=== PATIENT | female | born 1990 | race Caucasian/White ===

== ENCOUNTER 2017-05-11 17:36 | Emergency (ER) | payer OTHER ==
[~2017-05-11] VITALS: Ht 154.9 cm; Wt 49.8 kg
[~2017-05-11 17:36] MED LIST: Macrobid PO; Motrin PO; Procardia XL,Adalat PO; Tylenol Extra Streng PO; ZOFRAN4 MG PO
[2017-05-11 18:33] LABS: ADD MIUA? YES; BILIRUBIN NEGATIVE; BLOOD NEGATIVE; COLOR AMBER ((YELLOW)); GLUCOSE (STRIP) 50; KETONES 80; LEUKOCYTES MODERATE; NITRITE NEGATIVE; PROTEIN (STRIP) 100; SPECIFIC GRAVITY 1.034 (1.000-1.030)
[2017-05-11 18:33] LABS: HEMATOCRIT 41.3 % (36.0-46.0); MCH 30.8 PG (29.0-34.0); MCHC 35.8 G/DL (30.0-36.0); MCV 85.9 FL (83-99); PLATELET COUNT 247 K/uL (156-360); RBC DIS.WIDTH-CV 12.1 % (11.8-14.6); RED BLOOD COUNT 4.81 M/uL (3.80-5.20); WHITE BLOOD COUNT 8.1 K/uL (4.1-10.2)
[2017-05-11 18:57] LABS: CHLORIDE 100 mEq/L (99-109); POTASSIUM 3.4 mEq/L (3.7-5.4); SODIUM 138 mEq/L (136-147)
[2017-05-11 18:58] LABS: GLUCOSE 109 mg/dL (70-99)
[2017-05-11 19:00] LABS: ANION GAP 14 MEQ/L (2-14)
[2017-05-11 19:02] LABS: GFR ESTIMATE (CALCULATED) > 59 mL/min/
[2017-05-11 19:03] LABS: UREA NITROGEN (BUN) 12 mg/dL (9-23)
[2017-05-11 19:05] LABS: BACTERIA RARE /HPF; EPITHELIAL CELLS 3+ /HPF; MUCUS 4+ /LPF; RED BLOOD CELLS 0-5 /HPF (0-5); WHITE BLOOD CELLS 30-40 /HPF (0-5)
[2017-05-11 19:28] LABS: QUANTITATIVE HCG 118450.2 MIU/ML
[2017-05-11] MEDS ORDERED: ZOFRAN ODT4 MG PO (20:59)
[2017-05-11 21:21] VITALS: BP 139/87
== END 2017-05-11 21:22 | disposition home or self-care (01) ==
LOC: EME 17:36 → RME 17:36
PROVIDERS: Physician Assistant
DX: O20.0 Threatened abortion (principal); O21.9 Vomiting of pregnancy, unspecified; Z3A.01 Less than 8 weeks gestation of pregnancy
CPT/HCPCS: 76801; 80048; 81003; 84702; 85027; 99281; 99284; J7030

== ENCOUNTER 2017-05-13 11:30 | Emergency (ER) | payer OTHER ==
[~2017-05-13] VITALS: Ht 154.9 cm; Wt 50.9 kg
[~2017-05-13 11:30] MED LIST changes: +ZOFRAN ODT4 MG PO
[2017-05-13 12:34] LABS: ADD MIUA? YES; BILIRUBIN NEGATIVE; BLOOD NEGATIVE; COLOR YELLOW ((YELLOW)); GLUCOSE (STRIP) NEGATIVE; KETONES 80; LEUKOCYTES MODERATE; NITRITE NEGATIVE; PROTEIN (STRIP) 30; SPECIFIC GRAVITY 1.026 (1.000-1.030); UROBILINOGEN 0.2 MG/DL (0.2-1.0)
[2017-05-13 12:46] LABS: POTASSIUM 3.9 mEq/L (3.7-5.4); SODIUM 135 mEq/L (136-147)
[2017-05-13 12:48] LABS: GLUCOSE 85 mg/dL (70-99)
[2017-05-13 12:49] LABS: ANION GAP 12 MEQ/L (2-14)
[2017-05-13 12:51] LABS: BACTERIA RARE /HPF; EPITHELIAL CELLS 3+ /HPF; MUCUS TRACE /LPF; UCUL ADDED? YES; WHITE BLOOD CELLS 20-30 /HPF (0-5)
[2017-05-13 12:52] LABS: CHLORIDE 112 mEq/L (99-109); GFR ESTIMATE (CALCULATED) > 59 mL/min/
[2017-05-13 12:53] LABS: UREA NITROGEN (BUN) 4 mg/dL (9-23)
[2017-05-13 13:36] LABS: HEMATOCRIT 35.8 % (36.0-46.0); MCH 30.7 PG (29.0-34.0); MCHC 35.2 G/DL (30.0-36.0); MCV 87.3 FL (83-99); MEAN PLAT.VOLUME 9.9 uM^3 (9.5-12.4); PLATELET COUNT 188 K/uL (156-360); RBC DIS.WIDTH-SD 38.7 % (39-53)
[2017-05-13 15:48] LABS: QUANTITATIVE HCG 129880.5 MIU/ML
[2017-05-13] MEDS ORDERED: REGLAN10 MG PO (16:52)
[2017-05-13 17:08] LABS: CHLORIDE 114 mEq/L (99-109); POTASSIUM 3.6 mEq/L (3.7-5.4); SODIUM 138 mEq/L (136-147)
[2017-05-13 17:10] LABS: GLUCOSE 78 mg/dL (70-99)
[2017-05-13 17:11] LABS: ANION GAP 13 MEQ/L (2-14)
[2017-05-13 17:13] LABS: GFR ESTIMATE (CALCULATED) > 59 mL/min/
[2017-05-13 17:14] LABS: UREA NITROGEN (BUN) 4 mg/dL (9-23)
[2017-05-13 17:53] LABS: CARBON DIOXIDE (BICARBONATE) 13.7 MEQ/L (20-31)
[2017-05-13 19:25] VITALS: BP 122/84
== END 2017-05-13 19:28 | disposition home or self-care (01) ==
LOC: EME 11:30
PROVIDERS: Nurse Practitioner Family
DX: O21.9 Vomiting of pregnancy, unspecified (principal); O99.281 Endocrine, nutritional and metabolic diseases complicating pregnancy, first trimester; E86.0 Dehydration; Z3A.01 Less than 8 weeks gestation of pregnancy
CPT/HCPCS: 80048; 80048 91; 81003; 82803; 84702; 85027; 87086; 99281; 99285; J2405; J2765; J7030; J7120

== ENCOUNTER 2017-12-19 22:54 | Inpatient (IN) | payer OTHER ==
[~2017-12-19] VITALS: Ht 154.9 cm; Wt 66.2 kg
[~2017-12-19 22:54] MED LIST changes: +REGLAN10 MG PO
[2017-12-19 23:13] VITALS: BP 131/79
[2017-12-19 23:49] LABS: BASOPHIL (%) 0.1 % (0-1); EOSINOPHIL (%) 0.3 % (0-5); HEMOGLOBIN 10.2 G/DL (11.9-15.5); IMMATURE GRANULOCYTE (%) 0.5 % (0.0-0.7); LYMPHOCYTE (%) 18.5 % (15-42); LYMPHOCYTE COUNT 1.5 K/uL (1.0-2.8); MCH 23.2 PG (29.0-34.0); MCHC 31.9 G/DL (30.0-36.0); MCV 72.7 FL (83-99); MONOCYTE COUNT 0.6 K/uL (0-0.8); NEUTROPHIL (%) 73.6 % (45-76); NEUTROPHIL COUNT 5.8 K/uL (1.8-6.4); PLATELET COUNT 208 K/uL (156-360); RBC DIS.WIDTH-CV 16.5 % (11.8-14.6); RBC DIS.WIDTH-SD 42.5 % (39-53); WHITE BLOOD COUNT 7.8 K/uL (4.1-10.2)
[2017-12-19 23:57] LABS: AMPHETAMINE NEGATIVE (500 ng/mL); BARBITURATES NEGATIVE (200 ng/mL); BENZODIAZEPINES NEGATIVE (150 ng/mL); BUPRENORPHINE NEGATIVE (10 ng/mL); COCAINE NEGATIVE (150 ng/mL); METHADONE NEGATIVE (200 ng/mL); METHAMPHETAMINE NEGATIVE (500 ng/mL); OPIATES (MORPHINE) NEGATIVE (100 ng/mL); OXYCODONE NEGATIVE (100 ng/mL); PHENCYCLIDINE NEGATIVE (25 ng/mL); PROPOXYPHENE NEGATIVE (300 ng/mL); THC CANNABINOIDS NEGATIVE (50 ng/mL); TRICYCLIC ANTIDEPRESSANTS NEGATIVE (300 ng/mL)
[2017-12-20] VITALS (23 sets, daily range): BP systolic 116–135; BP diastolic 69–91
[2017-12-20 01:23] LABS: CHLORIDE 105 mEq/L (99-109); POTASSIUM 3.7 mEq/L (3.7-5.4); SODIUM 137 mEq/L (136-147)
[2017-12-20 01:25] LABS: GLUCOSE 102 mg/dL (70-99); TOTAL PROTEIN 6.9 g/dL (6.4-8.3)
[2017-12-20 01:27] LABS: TOTAL BILIRUBIN 0.4 mg/dL (0.0-1.0)
[2017-12-20 01:28] LABS: ALKALINE PHOSPHATASE 175 IU/L (3-129)
[2017-12-20 01:29] LABS: CREATININE 0.6 mg/dL (0.6-1.3); GFR ESTIMATE (CALCULATED) > 59 mL/min/
[2017-12-20 01:30] LABS: AST (GOT) 49 IU/L (2-34); UREA NITROGEN (BUN) 8 mg/dL (9-23)
[2017-12-20 01:31] LABS: ALT (GPT) 71 IU/L (3-49)
[2017-12-21 02:21] VITALS: BP 128/81
[2017-12-21 06:32] LABS: BASOPHIL (%) 0 % (0-1); EOSINOPHIL (%) 0.8 % (0-5); EOSINOPHIL COUNT 0.1 K/uL (0-0.3); HEMATOCRIT 24.1 % (36.0-46.0); IMMATURE GRANULOCYTE (%) 0.6 % (0.0-0.7); LYMPHOCYTE (%) 23.5 % (15-42); LYMPHOCYTE COUNT 1.5 K/uL (1.0-2.8); MCH 23.1 PG (29.0-34.0); MCHC 31.1 G/DL (30.0-36.0); MCV 74.4 FL (83-99); MONOCYTE (%) 6.7 % (3-12); MONOCYTE COUNT 0.4 K/uL (0-0.8); NEUTROPHIL (%) 68.4 % (45-76); NEUTROPHIL COUNT 4.3 K/uL (1.8-6.4); PLATELET COUNT 156 K/uL (156-360); RBC DIS.WIDTH-CV 16.5 % (11.8-14.6); RBC DIS.WIDTH-SD 44.2 % (39-53); WHITE BLOOD COUNT 6.3 K/uL (4.1-10.2)
[2017-12-21 06:33] LABS: HEMOGLOBIN 7.5 G/DL (11.9-15.5); RED BLOOD COUNT 3.24 M/uL (3.80-5.20)
[2017-12-21 06:38] LABS: ALBUMIN 3.1 G/DL (3.2-4.8); ALKALINE PHOSPHATASE 90 IU/L (3-129); ALT (GPT) 37 IU/L (3-49); AST (GOT) 31 IU/L (2-34); CHLORIDE 107 MEQ/L (99-109); CREATININE 0.5 MG/DL (0.6-1.3); GFR ESTIMATE (CALCULATED) > 59 mL/min/; GLUCOSE 78 mg/dL (70-99); POTASSIUM 4.2 MEQ/L (3.7-5.4); SODIUM 140 MEQ/L (136-147); TOTAL BILIRUBIN 0.3 MG/DL (0.0-1.0); TOTAL PROTEIN 5.4 G/DL (6.4-8.3); UREA NITROGEN (BUN) 5 mg/dL (9-23)
[2017-12-21 07:01] VITALS: BP 139/88
[2017-12-21 10:09] LABS: HEPATITIS B SURFACE ANTIGEN Nonreactive
[2017-12-21 10:10] LABS: HEPATITIS C ANTIBODY Nonreactive
[2017-12-21 10:11] LABS: ANTI-HEPATITIS A VIRUS (IGM) Nonreactive
[2017-12-21 10:12] LABS: ANTI-HEPATITIS B CORE (IGM) Nonreactive
[2017-12-21] MEDS ORDERED: CHROMAGEN,1 CAPSULE PO (10:18)
[2017-12-21] MEDS ORDERED: IBUPROFEN800 MG PO (10:19)
[2017-12-21 10:56] VITALS: BP 134/84
[2017-12-21 11:34] VITALS: BP 139/74
== END 2017-12-21 13:20 | disposition home or self-care (01) | DRG 775 ==
LOC: LDRP-OP 22:54 → 2WEST 22:55 → LDRP-OP 02-03 15:56
PROVIDERS: Advanced Practice Midwife
DX: O71.82 Other specified trauma to perineum and vulva (principal); O71.4 Obstetric high vaginal laceration alone; O99.02 Anemia complicating childbirth; D62 Acute posthemorrhagic anemia; O22.43 Hemorrhoids in pregnancy, third trimester; Z3A.38 38 weeks gestation of pregnancy; Z37.0 Single live birth; R74.8 Abnormal levels of other serum enzymes
CPT/HCPCS: 80053; 80074; 82570; 84156; 85025; C1755; G0378; J3010; J7120